=== PATIENT | male | born 1995 | race Caucasian/White ===

== ENCOUNTER 2016-12-24 20:11 | Emergency (ER) | payer OTHER, BC ==
[2016-12-24 20:43] VITALS: BP 134/69; PULSE 68; TEMP 98.6; BMI 26.6
--- NOTE | 2016-12-24 21:29 | PDOC ---
History of Present Illness - General Chief Complaint: Injury Stated Complaint: L ANKLE PAIN/SWELLING Time Seen by Provider: 12/24/16 20:18 - History of Present Illness Initial Comments: This 21-year-old man with a history of left ankle fracture in the past presents with acute left ankle injury. Just prior to presentation, as patient was playing basketball, he turned his left ankle. Since then, he has had pain and swelling, especially in the lateral aspect of the ankle joint. No foot swelling or pain. He did not fall/hit his head or injure his neck during the episode. Patient states the pain is worse with weightbearing. Past History - Past Medical History Allergies/Adverse Reactions: Allergies Allergy/AdvReac Type Severity Reaction Status Date / Time No Known Allergies Allergy Unverified 12/24/16 20:20 Home Medications: Ambulatory Orders NK [No Known Home Medication] 12/24/16 - Immunization History Immunization Up to Date: Yes - Psycho/Social/Smoking Cessation Hx Anxiety: No Suicidal Ideation: No Smoking History: Unknown if ever smoked Have you smoked in the past 12 months: No Number of Cigarettes Smoked Daily: 0 Information on smoking cessation initiated: No Hx Alcohol Use: No Drug/Substance Use Hx: No Substance Use Type: None Review of Systems - Review of Systems Able to Perform ROS?: Yes Comments:: 12 point review of systems is negative except for what is noted in the history of present illness *Physical Exam - Vital Signs Last Vital Signs Temp Pulse Resp BP Pulse Ox 98.6 F 68 14 134/69 98 12/24/16 20:17 12/24/16 20:17 12/24/16 20:17 12/24/16 20:17 12/24/16 20:17 - Physical Exam Comments: GENERAL: Awake, alert, and fully oriented, in no acute distress HEAD: No signs of trauma EYES: PERRLA, EOMI, sclera anicteric, conjunctiva clear ENT: Auricles normal inspection, hearing grossly normal, nares patent, oropharynx clear without exudates. Moist mucosa NECK: Normal ROM, supple, no lymphadenopathy, JVD, or masses LUNGS: Breath sounds clear and equal. No wheezes, and no crackles HEART: Regular rate and rhythm, normal S1 and S2, no murmurs, rubs or gallops ABDOMEN: Soft, nontender, normoactive bowel sounds. No guarding, no rebound. No masses EXTREMITIES: Left lower extremityankle: moderate edema /moderate tenderness/no deformity/no ecchymosis lateral malleolus Minimal edema/no tenderness/no deformity no ecchymosis medial malleolus No ligamentous instability; distal extremity warm and dry with excellent capillary refill Remainder of the extremity exam is normal NEUROLOGICAL: Cranial nerves II through XII grossly intact. Normal speech, normal gait SKIN: Warm, Dry, normal turgor, no rashes or lesions noted. ED Treatment Course - RADIOLOGY Radiology Studies Ordered: Category Date Time Status ANKLE-LEFT [RAD] Stat Radiology 12/24/16 20:22 Taken Progress Note - Progress Note Progress Note: Left ankle x-ray performed and interpreted by me. There is radiologic evidence of old healed fracture in the distal fibula; there is a small bony density with rounded edges distal to medial malleolus; this does not appear to be an acute avulsion fracture . No clear indication of new fracture/dislocation Ankle stirrup splint placed. The patient came to the emergency room using his own crutches; he is well- trained in crutch walking. The patient should elevate his ankle as much as possible ice application for the next 24-48 hours. Patient has used Dr. Reardon in the past for his orthopedic care. He should follow-up with them within the next 5 days (calling the office tomorrow morning to set up appointment). Meanwhile, the patient should not participate in any athletic activities until evaluation by orthopedics. Also, the patient should not work (patient works for [employer]) until evaluated by orthopedic surgeons. *DC/Admit/Observation/Transfer Diagnosis at time of Disposition: Left ankle sprain Qualifiers: Involved ligament of ankle: calcaneofibular ligament - Discharge Dispostion Disposition: HOME Condition at time of disposition: Stable - Referrals Referrals: Williams Reardon MD [Primary Care Provider] - Call tomorrow - Patient Instructions Printed Discharge Instructions: Ankle Sprain Additional Instructions: elevate/ice ankle as much as possible for next 2 days crutches for ambulation for the next 3-4 days ankle splint during day until seen by orthopedics ibuprofen/naproxen/acetaminophen as needed for pain no sports until seen by orthopedics call Dr Reardon office tomorrow AM to make appointment within 5 days no work until seen by orthopedics - Post Discharge Activity Work/School Note: Back to Work
[2016-12-24] MEDS ORDERED: IBUPROFEN 600 MG TABLET (FP) PO ONE ×2 (21:37→21:40)
== END 2016-12-24 21:49 | disposition home or self-care (01) ==
LOC: FER 20:11
PROC: 2W3TX1Z Immobilization of Left Foot using Splint (ICD-10-PCS; principal; 2016-12-24)
DX: S93.412A Sprain of calcaneofibular ligament of left ankle, initial encounter (principal); X58.XXXA Exposure to other specified factors, initial encounter; Y93.67 Activity, basketball; Y92.310 Basketball court as the place of occurrence of the external cause
CPT/HCPCS: 73610-TC-LT; 99282-25